=== PATIENT | male | born 2000 | race Caucasian/White ===

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

== ENCOUNTER 2024-12-06 10:07 | Emergency (ER) | payer OTHER ==
[~2024-12-06] VITALS: Ht 175.3 cm; Wt 109.5 kg
[2024-12-06 13:40] VITALS: BP 141/90; TEMP 98.4; O2SAT 98
== END 2024-12-06 13:46 | disposition home or self-care (01) ==
LOC: M ED 10:07
DX: S90.111A Contusion of right great toe without damage to nail, initial encounter (principal); Y92.019 Unspecified place in single-family (private) house as the place of occurrence of the external cause; Y93.9 Activity, unspecified; Y99.9 Unspecified external cause status; W22.03XA Walked into furniture, initial encounter